=== PATIENT | male | born 1965 | race Caucasian/White ===

== ENCOUNTER 2020-11-21 03:51 | Emergency (ER) | payer MEDICAID ==
[~2020-11-21] VITALS: Ht 170.2 cm; Wt 131.5 kg
[2020-11-21 04:00] VITALS: BP 148/89
--- NOTE | 2020-11-21 04:05 | NUR ---
CAROL MARAVILLA. TAKEN TO BED 1
--- NOTE | 2020-11-21 04:07 | NUR ---
Dr. Travis examining patient.
--- NOTE | 2020-11-21 04:49 | NUR ---
patient to CT via [facility]
--- NOTE | 2020-11-21 05:00 | NUR ---
patient back from CT
[2020-11-21 05:12] LABS: BASOPHILS % (AUTO) 0.4 % (0.0-2.0); EOSINOPHILS # (AUTO) 0.7 K/uL (0-0.4); HEMATOCRIT 37.8 % (36-52); HEMOGLOBIN 12.5 g/dL (12.0-18.0); LYMPHOCYTES % (AUTO) 17.8 % (20.5-51.1); MEAN CORPUSCULAR HEMOGLOBIN 30 pg (27-31); MEAN CORPUSCULAR HGB CONC 33 g/dL (33-37); MEAN CORPUSCULAR VOLUME 91.5 fL (80-94); MONOCYTES # (AUTO) 0.7 K/uL (0.8-1.0); MONOCYTES % (AUTO) 6.4 % (1.7-9.3); NEUTROPHILS % (AUTO) 69.4 % (42.2-75.2); PLATELET COUNT (AUTO) 307 K/uL (140-450); RED BLOOD CELL COUNT(AUTO) 4.13 MIL/uL (4.20-6.10); RED CELL DISTRIBUTION WIDTH 14.1 % (11.6-13.7); WHITE BLOOD COUNT (AUTO) 11.5 K/uL (4.8-10.8)
--- NOTE | 2020-11-21 05:24 | NUR ---
PT MOVED TO ER BED 12
[2020-11-21 05:28] LABS: ANION GAP 16.3 (8-16); CREATININE 1.9 mg/dL (0.6-1.3); MAGNESIUM 2.3 mg/dL (1.8-2.4); POTASSIUM 4.3 mmol/L (3.5-5.1); TOTAL BILIRUBIN 0.1 mg/dL (0.0-1.0)
--- NOTE | 2020-11-21 06:08 | NUR ---
55 YO/M BIBA S/P SEIZURE ACTIVITY. PER [facility] PATIENT EXPERIENCED A TONIC CLONIC SEIZURE OF APPROX 1 MIN AND CALLED [facility], PATIENT WAS NON-VERBAL WHEN [facility] ARRIVED BUT STARTED RESPONDING TO QUESTIONS SOON AFTER [facility] ARRIVED. PATIENT REPORTS HE WAS SLEEPING AND WOKE UP [facility] PERSONNEL WERE TAKING PATIENT INTO AMBULANCE. PATIENT REPORTS THIS IS FIRST TIME THIS OCCURS. PATIENT PRESENT AOX4, GCS 15, PERRL AT 3MM, NORMAL RN TELE STRENGTH AND LOWER EXTREMITY STRANGETH, S1 S2 PRESENT W +2 RADIAL PULSES, CAP REFIL <3SEC, LUNG SOUNDS CLEAR W BREATHING EVEN AND UNLABORED, BOWEL SOUNDS PRESENT. PATIENT DENIES ANY PAIN, DIZZYNESS, CONFUSION, N/V. PATIENT LAYING IN BED LOCKED IN LOWEST POSITION W X2 SIDERAILS UP, SEIZURE PRECAUTIONS IN PLACE. NAD NOTED, WILL CONTINUE TO MONITOR. PMH:HTN, DIABETES, HLD, GOUT NKA
--- NOTE | 2020-11-21 06:46 | NUR ---
PATIENT REPORTS FEEELING ODD,W SOME GENERALIZED ABDOMINAL DISCOMFORT. PATIENT REPORTS WHEN HE FEELS LIKE THAT HE HAS LOW BLOOD SUGAR. GLUCOSE LEVEL CHECK AT 209. ERMD AWARE.
--- NOTE | 2020-11-21 07:15 | NUR ---
REPORT RECEIVED FROM ROOSEVELT BLACKWOOD FOR CONTINUITY OF CARE
--- NOTE | 2020-11-21 07:15 | NUR ---
Pt report given to JAISON WHITE. Transfer of care at this time.
--- NOTE | 2020-11-21 07:23 | NUR ---
REPORT CALLED TO JAISON CASTELLON FROM [facility] FOR TRANSFER OF PATIENT CARE AT THIS TIME.
[2020-11-21 07:47] VITALS: BP 133/53
--- NOTE | 2020-11-21 07:47 | NUR ---
Patient to be transferred to [facility] ER. Is being transferred due to HIGHER LEVEL OF CARE. Receiving facility has accepting physician and available space. ER physician has signed transfer form. Patient or responsible constitution party has agreed to transfer and signed form. Patient belongings inventoried and will be sent with patient. Copy of nursing notes, lab reports, EKG, Physicians Orders and X-rays to be sent with patient. Report called to RAVINDER BLACKWOOD at receiving facility. [facility] ambulance service has been called for transfer. ETA to facility is 10 min.
[2020-11-21 08:29] LABS: BARBITURATE, URINE NEGATIVE ng/ml (NEG <=200); BENZODIAZEPINE, URINE NEGATIVE ng/mL (NEG <=200); CANNABINOID, URINE NEGATIVE ng/mL (NEG <=50); COCAINE, URINE NEGATIVE ng/mL (NEG <=300); OPIATE, URINE NEGATIVE ng/mL (NEG <=2000); PHENCYCLIDINE SCREEN,URINE NEGATIVE ng/mL (NEG <=25)
== END 2020-11-21 07:47 | disposition short-term general hospital (02) ==
LOC: MED 03:51
DX: R56.9 Unspecified convulsions (principal)
CPT/HCPCS: 36415; 70450; 80053; 80305; 83735; 83880; 84484; 85025; 85610; 85730; 93005; 99285